=== PATIENT | male | born 1935 | race Caucasian/White ===

== ENCOUNTER → 2017-01-30 | Outpatient (CLI) | payer MEDICARE, MEDICAID ==
[~2017-01-30] MED LIST: ALBI30PE SQ; ASPI81TA39 PO; INSLAN SQ; INSNOV SQ; LISI10TA PO; METO25 PO; SIMV20TA6 PO; SITA50 PO
== END | disposition home or self-care (01) ==
LOC: RADMN 09:54
PROVIDERS: ATTEND Specialist
DX: G31.9 Degenerative disease of nervous system, unspecified (principal); G93.89 Other specified disorders of brain; I67.2 Cerebral atherosclerosis; R90.82 White matter disease, unspecified; Z86.73 Personal history of transient ischemic attack (TIA), and cerebral infarction without residual deficits
CPT/HCPCS: 70450

== ENCOUNTER → 2017-07-22 | Outpatient (CLI) | payer MEDICARE, MEDICAID | END | disposition home or self-care (01) | LOC: RADMN 10:13 | PROVIDERS: ATTEND Family Medicine | DX: I67.2 Cerebral atherosclerosis (principal); G31.89 Other specified degenerative diseases of nervous system; H61.23 Impacted cerumen, bilateral | CPT/HCPCS: 70450 ==